=== PATIENT | male | born 1990 | race Caucasian/White ===

== ENCOUNTER 2020-04-09 15:54 | Emergency (ER) | payer MEDICAID, SELFPAY ==
[2020-04-09 16:15] VITALS: BP 118/77; PULSE 89; RESP 20; TEMP 36.7; O2SAT 100; BMI 32.3
--- NOTE | 2020-04-09 16:20 | HMH.EDUTC ---
[facility] [place] Disposition Clinical Impression: Encounter for laboratory testing for COVID-19 virus Disposition: Home, Self-Care Condition on Discharge: Good Instructions: Preventing the Spread of Coronavirus Discharge Instructions Additional Instructions: You was tested for today for COVID19 your test result should be back later this evening, you may call back later this evening to see if your test results are back and the result You was given a handout with instructions for Self Quarantine and Self isolation for while you wait on test results and what to do if they are positive Return if needed Straight to ER if any life threatening symptoms Referrals: PCP,No [Primary Care Provider] - Forms: Work/School Release Time of Disposition: 16:32 Medical Decision Making - Rainer Inquiry Pt receiving controlled substance: No Rainer was queried for this patient: No Vital Signs: 04/09/20 16:15 Temperature 98.0 F Temperature Source Oral Pulse Rate [Right Brachial] 89 Respiratory Rate 20 Blood Pressure [Right Arm] 118/77 Blood Pressure Mean [Right Arm] 90 Blood Pressure Source [Right Arm] Automatic Cuff Blood Pressure Position [Right Arm] Sitting 02 Sat by Pulse Oximetry 100 Oxygen Delivery Method Room Air Orders (Tests/Meds): ORDERS Category Date Time Status Covid-19 Nasal PCR ([facility]) Routine Lab 04/09/20 15:59 Ordered [facility] [place] HPI - General Stated complaint: Needs COVID Test Time Seen by Provider: 04/09/20 16:20 Mode of Arrival: Ambulatory Source of Information: Patient Limitations: No Limitations Description of Symptoms (Recalled from Triage Doc. by RN): PATIENT REQUESTING COVID TEST. HIS FIANCE TESTED POSITIVE TODAY AFTER BEING EXPOSED TO POSITIVE CO-WORKER. PATIENT DENIES SYMPTOMS HEENT Symptoms (Recalled from RN notes): No Resp Symptoms (Recalled from RN notes): No Skin Symptoms (Recalled from RN notes): No MS Symptoms (Recalled from RN notes): No Functional Status (Recalled from RN notes): WNL - History of Present Illness Provider Complaint: Patient states that he is not having any symptoms but his fiance tested positive earlier today for COVID and they live in the same house together States that he was worried that he may have it too and wanted to get tested - Related Data Home Medications Medication Instructions Recorded Confirmed No Known Home Medications 04/07/19 04/07/19 Allergies Allergy/AdvReac Type Severity Reaction Status Date / Time No Known Allergies Allergy Verified 04/07/19 10:50 - Worker's Comp Is this a Worker's Comp case?: No [facility] History - Hepatitis A Screen Drug use history?: No High risk sexual behaviors?: No History of sexually transmitted infection?: No Currently employed?: No Childcare worker?: No Do you have indoor plumbing?: Yes Do you have electricity?: Yes Attestation statement:: This patient has been screened for Hepatitis A risk factors. I have reviewed the patient's past medical history: Yes - Social History Alcohol Intake: never Occupational Status: other ROS Obtained: Yes All systems reviewed & no additional complaints, Yes Systems reviewed as appropriate & no additional complaints - Constitutional Constitutional: Reports system reviewed and no additional complaints, except as docu, Denies body ache, Denies chills, Denies fever(s) - ENT Ears, Nose, Mouth, and Throat: Reports system reviewed and no additional complaints, except as docu, Denies sinus pain, Denies sinus pressure, Denies sore throat - Respiratory Respiratory: Yes system reviewed and no additional complaints, except as docu - Gastrointestinal Gastrointestingal: Reports: system reviewed and no additional complaints, except as docu - Musculoskeletal Musculoskeletal: Reports system reviewed and no additional complaints, except as docu Physical Exam - General General appearance: alert, in no apparent distress - ENT ENT exam: Present: normal exam, normal oropharynx, muco
[2020-04-09 16:33] VITALS: BP 118/77; PULSE 89; RESP 20; TEMP 36.7; O2SAT 100
== END 2020-04-09 16:35 | disposition home or self-care (01) ==
PROVIDERS: Emergency Provider Nurse Practitioner
DX: Z20.828 Contact with and (suspected) exposure to other viral communicable diseases (principal)
CPT/HCPCS: 99201; U0003

== ENCOUNTER 2020-07-15 09:06 | Emergency (ER) | payer BC, OTHER, SELFPAY ==
[2020-07-15 09:13] VITALS: PULSE 78; RESP 16; TEMP 36.6; O2SAT 98; BMI 28.1
[2020-07-15 09:15] VITALS: BP 126/68; PULSE 84; RESP 19; TEMP 36.6; O2SAT 97; BMI 36.8
--- NOTE | 2020-07-15 09:21 | XR_ITS ---
PROCEDURE: XR RIBS RT MIN 3V W CXR1V CLINICAL INDICATION: right rib pain COMPARISON: No exams were available for comparison FINDINGS: Multiple views of the right ribs show no obvious fracture. No lytic or blastic change. Consider follow-up in 7-[address] with 3D reformats if pain persists Frontal view of the chest shows no acute finding IMPRESSION: No acute findings. Dictated by: Bernardino Oviedo MD 07/15/2020 09:50 Bernardino Oviedo MD in [place] 07/15/2020 09:50
--- NOTE | 2020-07-15 09:21 | HMH.EDUTC ---
[facility] [place] Disposition Clinical Impression: Rib pain on right side Disposition: Home, Self-Care Condition on Discharge: Good Instructions: Etodolac Additional Instructions: Over the counter muscle rubs may help with muscular pain in ribs *Over the counter patches like lidocaine patches may help with rib pain Take medication as prescribed, no additional Motrin or Ibuprofen with etodolac, you may take some Tylenol if you need something more for pain *Remember you had a Toradol shot in the clinic today, which is similar to Etodolac do not start this medication until 10pm tonight *Not additional anti-inflammatory like motrin, aleve, advil with the above amount of Etodolac. You can still take Tylenol every 4 hours as needed if you need something else for pain *Ice 20 minutes every 2 hours for the first 48 hours after the initial injury followed by moist heat every 20 minutes 3-4 times a day to affected area *Muscle relaxer as prescribed as needed for muscle spasms but remember, it WILL cause drowsiness You cannot take it and drive, operate machinery or care for small children. *Keep this area active, no movement leads to more stiffness, However take it easy and avoid heavy lifting pushing or pulling *Follow up with you family doctor if no improvement for further treatment Straight to ER if any life threatening symptoms Prescriptions: Etodolac [Etodolac 200mg Cap*] 200 mg PO Q6H PRN #20 cap PRN Reason: Moderate Pain Transmission Status: Received by [facility] methocarbamoL [Methocarbamol 750mg Tab] 750 mg PO BID PRN #10 tab PRN Reason: Muscle Spasm Transmission Status: Received by [facility] Referrals: PCP,No [Primary Care Provider] - As needed Forms: Work/School Release Time of Disposition: 10:01 Medical Decision Making - Rainer Inquiry Pt receiving controlled substance: No Rainer was queried for this patient: No Vital Signs: 07/15/20 09:13 07/15/20 09:15 07/15/20 10:28 Temperature 98 F 97.8 F 97.8 F Temperature Source Oral Oral Pulse Rate 84 Pulse Rate [Right] 78 84 Respiratory Rate 16 19 19 Blood Pressure 126/68 Blood Pressure [Right Arm] 126/68 Blood Pressure Mean [Right Arm] 87 Blood Pressure Source [Right Arm] Automatic Cuff Blood Pressure Position [Right Arm] Sitting 02 Sat by Pulse Oximetry 98 97 Oxygen Delivery Method Room Air Room Air Orders (Tests/Meds): ED MEDICATIONS Discontinued Medications Generic Name Dose Route Start Last Admin Trade Name Randal PRN Reason Stop Dose Admin Ketorolac Tromethamine 60 mg 07/15/20 09:53 07/15/20 10:05 Ketorolac 60mg/2ml Vial IM 07/15/20 09:54 60 mg ONCE ONE Administration - Radiology Data #1 Image(s): Chest (with right ribs) Image Reviewed: Yes I have reviewed radiologist's interpretation No acute findings Medical Decision Narrative: Patient reports pain in right rib area that is on side an extends around to his back, State that pain feels like he has a catch at times in right rib area Discussed with patient about transfer back to the ED for further work up for Gallbladder and patient declined at this time Patient states that pain much improved after Torodol injection [facility] [place] HPI - General Stated complaint: pain in right side Time Seen by Provider: 07/15/20 09:21 Mode of Arrival: Ambulatory Source of Information: Patient Limitations: No Limitations Description of Symptoms (Recalled from Triage Doc. by RN): Pt c/o right side upper rib pain. Advises he woke up this morning wiht pain in his rib area. Denies any N/V/D. 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 - History of Present Illness Provider Complaint: Patient state that he has been doing some work around his house and has been pulling and tugging at stuff. States that last night he started having pain in his right rib area that feels like it is catching State that at times it will take his breath and
[2020-07-15 10:28] VITALS: BP 126/68; PULSE 84; RESP 19; TEMP 36.6; O2SAT 97
== END 2020-07-15 10:29 | disposition home or self-care (01) ==
PROVIDERS: Emergency Provider Nurse Practitioner
DX: R07.81 Pleurodynia (principal); X50.0XXA Overexertion from strenuous movement or load, initial encounter; Y92.019 Unspecified place in single-family (private) house as the place of occurrence of the external cause
CPT/HCPCS: 71101; 96372; 99202; G0463

== ENCOUNTER → 2020-08-14 15:29 | Outpatient (CLI) | payer BC, OTHER, SELFPAY ==
[2020-08-14 16:21] LABS: Basophils # 0.1 K/mm3 (0-0.2); Basophils % 0.5 % (0.1-2.0); Eosinophils # 0.2 K/mm3 (0.0-0.4); Eosinophils % 2.4 % (0.1-12.0); Hematocrit 45.7 % (42.0-52.0); Lymphocytes # 2.7 K/mm3 (0.7-4.5); Lymphocytes % 28.6 % (10-50); Mean Corpuscular HGB Conc 32.8 g/dL (31.8-35.4); Mean Corpuscular Hemoglobin 28.9 pg (27.0-31.2); Mean Platelet Volume 7.5 fl (7.4-10.4); Monocytes # 0.5 K/mm3 (0.1-1.0); Monocytes % 5.7 % (1.7-9.3); Neutrophils # 5.9 K/mm3 (1.8-7.8); Neutrophils % 62.7 % (37.0-80.0); Platelet Count 302 K/mm3 (142-424); Red Blood Count 5.19 M/mm3 (4.60-6.20); Red Cell Distribution Width 13.1 % (11.5-17.5); White Blood Count 9.4 K/mm3 (4.8-10.8)
[2020-08-14 16:27] LABS: Hemoglobin A1C 5.8 % (4.0-6.0)
[2020-08-14 17:24] LABS: Chloride 103 mmol/L (98-107); Sodium 138 mmol/L (136-145)
[2020-08-14 17:25] LABS: Potassium 4.6 mmoL/L (3.5-5.1)
[2020-08-14 17:27] LABS: Alanine Aminotransferase 64 U/L (12-78); Albumin Level 4.4 g/dl (3.5-5.0); Albumin/Globulin Ratio 1.2 (1.1-1.8); Alkaline Phosphatase 97 U/L (38-126); Anion Gap 11.6 mEq/L (5-15); Aspartate Amino Transferase 43 U/L (17-59); Bilirubin,Total 0.9 mg/dl (0.2-1.3); Blood Urea Nitrogen 13 mg/dl (9-20); Calcium 10.4 mg/dl (8.4-10.2); Carbon Dioxide 28 mmol/L (22.0-30.0); Cholesterol 233 mg/dl (140-200); Estimated Glomerular Filt Rate 100 ml/min (>60); GFR (African American) 121 ML/MIN (>60); Globulin 3.7 g/dL (1.3-3.2); Glucose 89 mg/dl (74-100); Total Protein,Serum 8.1 g/dl (6.3-8.2); Triglycerides 334 mg/dl (30-150); VLDL Cholesterol 67 mg/dL (0-40)
[2020-08-14 17:28] LABS: Chol/HDL Ratio 5.8 (1-3.5); HDL Cholesterol 40 mg/dl (40-60)
[2020-08-14 17:39] LABS: Direct LDL Cholesterol 125.55 mg/dL (100-129)
== END ==
PROVIDERS: Visit Provider Internal Medicine Adolescent Medicine
DX: Z00.00 Encounter for general adult medical examination without abnormal findings (principal); G47.30 Sleep apnea, unspecified
CPT/HCPCS: 36415; 80053; 80061; 83036; 85025

== ENCOUNTER → 2020-09-05 17:58 | Outpatient (CLI) | payer BC, OTHER, SELFPAY | PROVIDERS: PCP Internal Medicine Adolescent Medicine; Visit Provider Internal Medicine Adolescent Medicine | DX: G47.33 Obstructive sleep apnea (adult) (pediatric) (principal); R06.81 Apnea, not elsewhere classified; R40.0 Somnolence; R06.83 Snoring | CPT/HCPCS: G0399 ==

== ENCOUNTER 2021-07-30 19:17 | Emergency (ER) | payer SELFPAY ==
[2021-07-30 21:44] VITALS: BP 159/96; PULSE 73; RESP 18; TEMP 36.8; O2SAT 97; BMI 34.0
--- NOTE | 2021-07-30 21:57 | HMH.EDUTC ---
[facility] [place] Disposition Clinical Impression: Viral syndrome, Exposure to COVID-19 virus Disposition: Home, Self-Care Condition on Discharge: Good Instructions: DI for COVID-19 (Suspected or Confirmed ), Preventing the Spread of Coronavirus Discharge Instructions Additional Instructions: Drink plenty of fluids. Take tylenol or ibuprofen for pain or fever. Take the medications as directed. Follow up with your regular doctor. GO TO THE ER FOR ANY WORSENING SYMPTOMS Quarantine until you know the results of your covid-19 test. Notify your school or workplace of your results and follow their instructions regarding return to work/school. Prescriptions: Brompheniramine/Pseudoephed/Dm [Bromfed Dm Cough Syrup] 5 ml PO Q6HP PRN #240 ml PRN Reason: Cough Transmission Status: Received by [email or web address] Ibuprofen [Ibuprofen 600mg Tablet] 600 mg PO Q6HP PRN #30 tab PRN Reason: Mild Pain Transmission Status: Received by [email or web address] Benzonatate [Benzonatate 100mg cap] 100 mg PO TIDP PRN #30 cap PRN Reason: Cough Transmission Status: Received by [email or web address] Referrals: Bobby Nolan MD [Primary Care Provider] - Forms: Work/School Release Time of Disposition: 22:06 Medical Decision Making - Medical Records Medical records reviewed: No: I reviewed the patient's medical records. - Rainer Inquiry Pt receiving controlled substance: No Vital Signs: 07/30/21 21:44 07/30/21 22:25 Temperature 98.3 F 98.3 F Temperature Source Oral Pulse Rate 73 Pulse Rate [Left] 73 Respiratory Rate 18 18 Blood Pressure 159/96 H Blood Pressure [Right Arm] 159/96 H Blood Pressure Mean [Right Arm] 117 02 Sat by Pulse Oximetry 97 - Lab Data Lab results reviewed: Yes: I reviewed the patient's lab results. Lab Results 07/30/21 21:35: Group A Strep Rapid Negative 07/30/21 21:43: Influenza Type A Ag Negative, Influenza Type B Ag Negative Orders (Tests/Meds): ORDERS Category Date Time Status Strep Screen Confirmation Stat Micro 07/30/21 21:35 Received [facility] [place] HPI - General Stated complaint: exposed ZUNIGA,Body aches Time Seen by Provider: 07/30/21 21:57 Mode of Arrival: Ambulatory Source of Information: Patient Limitations: No Limitations Description of Symptoms (Recalled from Triage Doc. by RN): pt c/o myalgia, ZUNIGA and nausea. pt was exposed directly to covid. HEENT Symptoms (Recalled from RN notes): Yes (ZUNIGA) Resp Symptoms (Recalled from RN notes): No Skin Symptoms (Recalled from RN notes): No MS Symptoms (Recalled from RN notes): No Functional Status (Recalled from RN notes): wnl - History of Present Illness Provider Complaint: He c/o feeling bad since this morning. He has had a scratchy sore throat, body aches, chills, and a low grade fever. He has been exposed to covid-19 and he has not been vaccinated against covid-19. - Related Data Previous Rx's Medication Instructions Recorded Etodolac [Etodolac 200mg Cap*] 200 mg PO Q6H PRN #20 cap 07/15/20 methocarbamoL [Methocarbamol 750mg 750 mg PO BID PRN #10 tab 07/15/20 Tab] Benzonatate [Benzonatate 100mg 100 mg PO TIDP PRN #30 cap 07/30/21 cap] Brompheniramine/Pseudoephed/Dm 5 ml PO Q6HP PRN #240 ml 07/30/21 [Bromfed Dm Cough Syrup] Ibuprofen [Ibuprofen 600mg 600 mg PO Q6HP PRN #30 tab 07/30/21 Tablet] Allergies Allergy/AdvReac Type Severity Reaction Status Date / Time No Known Allergies Allergy Verified 04/07/19 10:50 - Worker's Comp Is this a Worker's Comp case?: No [facility] History - Hepatitis A Screen Drug use history?: No High risk sexual behaviors?: No History of sexually transmitted infection?: No Currently employed?: No Childcare worker?: No Do you have indoor plumbing?: Yes Do you have electricity?: Yes Attestation statement:: This patient has been screened for Hepatitis A risk factors. I have reviewed the patient's past medical history: Yes - Social History Alcohol
[2021-07-30 21:58] LABS: Strep Scrn Group A (Rapid) Negative (Negative)
[2021-07-30 22:25] VITALS: BP 159/96; PULSE 73; RESP 18; TEMP 36.8
[2021-07-31 19:14] LABS: UTC Influenza A Antigen Negative (Negative); UTC Influenza B Antigen Negative (Negative)
== END 2021-07-30 22:27 | disposition home or self-care (01) ==
PROVIDERS: Emergency Provider Nurse Practitioner Family; PCP Internal Medicine Adolescent Medicine
DX: Z20.822 Contact with and (suspected) exposure to COVID-19 (principal); B34.9 Viral infection, unspecified; R50.9 Fever, unspecified
CPT/HCPCS: 87430; 87804; 99203; C9803; G0463; U0003; U0005

== ENCOUNTER → 2021-08-10 10:26 | Outpatient (CLI) | payer BC, SELFPAY | PROVIDERS: Visit Provider Nurse Practitioner | DX: U07.1 COVID-19 (principal) | CPT/HCPCS: C9803; U0003; U0005 ==

== ENCOUNTER → 2023-04-21 13:17 | Outpatient (CLI) | payer BC, SELFPAY ==
[2023-04-21 13:45] LABS: Basophils # 0.1 K/mm3 (0-0.2); Basophils % 0.4 % (0.1-2.0); Eosinophils # 0.2 K/mm3 (0.0-0.4); Hematocrit 45.9 % (42.0-52.0); Hemoglobin 15.9 g/dL (14.1-18.0); Lymphocytes # 3.2 K/mm3 (0.7-4.5); Lymphocytes % 31.5 % (10-50); Mean Corpuscular HGB Conc 34.7 g/dL (31.8-35.4); Mean Corpuscular Hemoglobin 30.4 pg (27.0-31.2); Mean Corpuscular Volume 87.8 fl (80-94); Mean Platelet Volume 8.2 fl (7.4-10.4); Monocytes # 0.5 K/mm3 (0.1-1.0); Monocytes % 5.2 % (1.7-9.3); Neutrophils # 6.3 K/mm3 (1.8-7.8); Neutrophils % 60.8 % (37.0-80.0); Platelet Count 316 K/mm3 (142-424); Red Blood Count 5.23 M/mm3 (4.60-6.20); Red Cell Distribution Width 13.3 % (11.5-17.5); White Blood Count 10.3 K/mm3 (4.8-10.8)
[2023-04-21 14:45] LABS: Anion Gap 15.6 mEq/L (5-15); Blood Urea Nitrogen 14 mg/dl (9-20); Calcium 10.3 mg/dl (8.4-10.2); Carbon Dioxide 28 mmol/L (22.0-30.0); Chloride 100 mmol/L (98-107); Estimated Glomerular Filt Rate 98 ml/min (>60); GFR (African American) 119 ML/MIN (>60); Glucose 83 mg/dl (74-100); Potassium 4.6 mmoL/L (3.5-5.1); Sodium 139 mmol/L (136-145)
== END ==
PROVIDERS: PCP Internal Medicine Adolescent Medicine; Visit Provider Surgery
DX: Z30.2 Encounter for sterilization (principal)
CPT/HCPCS: 36415; 80048; 85025

== ENCOUNTER 2023-05-06 06:02 | Day surgery (SDC) | payer BC, SELFPAY ==
[2023-05-04 14:21] VITALS: BMI 36.0
[2023-05-06] VITALS (10 sets, daily range): BP systolic 110–136; BP diastolic 53–88; PULSE 69–88; RESP 14–19; TEMP 36.1–36.6; O2SAT 90–97
--- NOTE | 2023-05-06 07:05 | EXP.ANES.CKL ---
[facility] Disclaimer: The information contained in this section may have been updated after the patient was seen, as this information can be updated by other users. Surgical History History of eye surgery Family History Other No significant family history Social History (Updated 05/06/23 @ 06:29 by Heike Aguilera RN) Smoking Status: Never smoker alcohol intake: never substance use type: denies use current occupational status: employed Travel in the last 8 weeks: None [facility] Anesthesia Checklist Patient Identification Patient Identification: Arm Band, Family and Verbal (Name & ) Structural Data Admitted From: Home Planned Operative Procedure/s: Vasectomy Verified Documents: Surgical Consent and History and Physical NPO Status Verified Time NPO: 21:00 Chart Verification Results Verified: CBC and BMP Additional verifications Patient : No Anesthesia Reactions: No Hx Blood Transfusions: No Blood Transfusion Reaction: No Cephalosporin Allergy: No Previous Colonoscopy: No Cardiovascular Assessment Heart Sounds: S1 & S2 Pulse Rhythm: Irregular Peripheral Edema: No Airway Assessment Mallampati Score:: Class III C-Spine Mobility Assessed: Yes TMJ Mobility Assessed: Yes Dentition: Good Dentition (Nothing loose per pt.) Neurological Assessment Level of Consciousness: Awake, Alert, Appropriate and Follows Commands Hx Seizures: No Numbness or tingling in extremities: No Anesthesia Plan Anesthesia Risk discussed: Yes Anesthesia Plan: Verified ASA Class: II Anesthesia Type: General
--- NOTE | 2023-05-06 08:09 | P.OP_ITS ---
Date of procedure: 05/06/23 Pre-op Diagnosis:: Desire for sterility Post-op Diagnosis:: Same Procedure performed:: Bilateral vasectomy Surgeon:: Bishnu Tarango MD Anesthesia: LMA Estimated blood loss (mL): 5 Operative findings:: Mild to moderate increased tissue thickening on left Operative note:: After informed consent was obtained the patient was taken to the operating room and placed in the supine position. General anesthesia with laryngeal mask airway was achieved. His florencia-scrotal region was prepped and draped in a sterile fashion. The left vas deferens was carefully elevated. Some mild to moderate tissue thickening noted. After infiltration with local anesthetic an incision was made overlying the left vas deferens. The underlying tissue was dissected with a combination of sharp dissection, blunt dissection, and electroc autery. The vas deferens was carefully elevated and then ligated with 2-0 chromic proximally and distally. The intervening portion was transected sharply and passed off for pathologic evaluation. Each margin was cauterized. The overlying skin was closed with 4-0 chromic. The right vas deferens was managed in the same fashion. Dressings were applied and the patient was transferred to recovery. Condition: stable Disposition: PACU Specimens:: Left vas deferens Right vas deferens Complications:: No immediate
--- NOTE | 2023-05-06 08:18 | EXP.ANES.I ---
[facility] Anesthesia Record Part I Anesthesia Record I Intake, IV Amount: 500 Hydration: Adequate Estimated blood loss (mL): 5 Urine output (mL): 0 Blood Products used (#): none Blood Pressure: 114/53 SaO2: 90 Pulse Rate: 82 Airway Patency: Patent Respiratory Rate: 16 Temperature: 97.0 F Patient is:: Awake, Drowsy and Stable Stable to PACU at:: 08:17
--- NOTE | 2023-05-06 12:58 | P.PNANES_ITS ---
[facility] Anesthesia Record Part II Anesthesia Record Part II Discharge Time: 08:42 Destination: Surgical Day Care (OP Surgery) PACU nurse assessment reviewed?: Yes Patient Condition:: Good Anesthesia Complications:: None Swallowing reflex intact?: Yes Airway Patency: Patent Cyanosis?: No Blood Pressure: 110/71 SaO2: 97 Respiratory Rate: 17 Pulse Rate: 82 Temperature: 97.1 F Mental Status: Alert & Oriented Pain level:: 0 Nausea and/or vomitting:: None Intake, IV Amount: 0 Hydration: Adequate
== END 2023-05-06 09:13 | disposition home or self-care (01) ==
PROVIDERS: PCP Internal Medicine Adolescent Medicine; Visit Provider Surgery
PROC: (CPT 55250; principal; 2023-05-06 07:30)
DX: Z30.2 Encounter for sterilization (principal)
CPT/HCPCS: 55250; 96374; J2405

== ENCOUNTER → 2023-06-25 16:14 | Outpatient (CLI) | payer BC, SELFPAY ==
[2023-06-25 17:03] LABS: PH,Semen 8.5 (7.3-8.3); Semen Viscosity Normal (Normal); Volume,Semen < 1.0 ml (2.0-5.0); WBCs,Semen Negative
[2023-06-25 17:19] LABS: Sperm Count 0 mil/mm3 (20-160)
== END ==
PROVIDERS: PCP Internal Medicine Adolescent Medicine; Visit Provider Surgery
DX: Z30.09 Encounter for other general counseling and advice on contraception (principal)
CPT/HCPCS: 89320

== ENCOUNTER 2024-03-23 02:51 | Emergency (ER) | payer SELFPAY ==
[2024-03-23 02:52] VITALS: BP 153/84; PULSE 136; RESP 22; TEMP 36.8; O2SAT 91; BMI 21.2
--- NOTE | 2024-03-23 02:53 | XR_ITS ---
PROCEDURE INFORMATION: Exam: XR Chest Exam date and time: 03/23/2024 3:11 AM Age: 33 years old Clinical indication: Pain; Chest pressure; Additional info: Cp, hard vomiting TECHNIQUE: Imaging protocol: Radiologic exam of the chest. Views: 1 view. COMPARISON: CR XR RIBS RT MIN 3V W CXR1V 07/15/2020 9:34 AM FINDINGS: Lungs: Unremarkable. No consolidation. Pleural spaces: Unremarkable. No pleural effusion. No pneumothorax. Heart/Mediastinum: Unremarkable. No cardiomegaly. Bones/joints: Unremarkable. IMPRESSION: No acute findings.
--- NOTE | 2024-03-23 02:57 | ECG_ITS ---
APPROVED REPORT Exam: Resting ECG HR:117 bpm ECG Measurements Heart Rate 117 AXES SD 156 P 47 QRSd 114 QRS -5 QT 312 T 30 QTc 382 Conclusion SINUS TACHYCARDIA MODERATE INTRAVENTRICULAR CONDUCTION DELAY [110+ ms QRS DURATION] ABNORMAL RHYTHM ECG No STEMI Electronically signed by : ABDI ZHENG, 03/23/2024 06:56:30
--- NOTE | 2024-03-23 02:58 | ED_ITS ---
Discharge Plan Disposition Patient Disposition: Home, Self-Care Condition: Good Prescriptions Prescriptions: No Action No Known Home Medications Activity Restrictions/Add. Instructions Additional Instructions/Restrictions: You were evaluated in the ER and are appropriate for discharge at this time. Avoid illicit substances in the future, especially products such as the delta 9 you took tonrema. These products are not regulated and you cannot guarantee what you are actually getting in them. Drink plenty of water and follow-up with your primary care doctor in 2 to 3 days for reevaluation. Return to the ER with new, worsening, or otherwise concerning symptoms. Clinical Impressions Clinical Impression: Alcohol use, Vomiting, Elevated lactic acid level, Ingestion of substance Instructions Patient Instructions: DI for Diarrhea and Traveler's Diarrhea -- Adult, DI for Diarrhea and Traveler's Diarrhea -- Child, DI for Nausea -- Adult, DI for Nausea -- Child, DI for Altered Mental Status Print Language Print Language: Polish Discharge ED Provider: Martina Calles General Adult HPI General Chief complaint: Altered Mental Status Stated complaint: n/v from delta 9 ingestion Time Seen by Provider: 03/23/24 02:53 History of Present Illness HPI narrative: 33-year-old male presents to the ER with multiple uncontrollable episodes of emesis. [employer] party called EMS for 2 individuals including this patient having uncontrollable vomiting. Law enforcement and EMS arrived on scene and help provide report. The individuals who are vomiting had taken delta 9 Gummies called Mapplas that are marketed as having 200 mg of D9 live resin plus HHC plus THC . Ingredients list include sugar, corn syrup, water, pectin, citric acid, fruit flavors, sodium citrate, potassium sorbate, MCT Oil, soy lethicin, hemp extract oil. This was taken directly from the bottle provided to me by law enforcement. Recommendation on the bottle is half gummy for the first time, up to 1 gummy at a time after initial use. Patient reports using this product approximately 1 year ago without any side effects. Tonight patient had a few beers prior to taking this product and since that time started having large- volume uncontrollable emesis. Nonbloody, nonbilious. Patient does not take any daily medications, no known drug allergies. EMS reports tachycardia and route, blood sugar 141. Patient is complaining of a burning sensation through his chest since starting to vomit. ROS otherwise negative. Related Data Home Medications ?Medication ?Instructions ?Recorded ?Confirmed No Known Home Medications 05/04/23 05/12/23 Allergies Allergy/AdvReac Type Severity Reaction Status Date / Time No Known Allergies Allergy Verified 05/12/23 14:00 [facility] Disclaimer: The information contained in this section may have been updated after the patient was seen, as this information can be updated by other users. Surgical History (Updated 05/12/23 @ 14:01 by ZOILA Medrano) History of vasectomy History of eye surgery Family History (Reviewed 05/12/23 @ 14: by ZOILA Medrano) Other No significant family history Social History Smoking Status: Never smoker alcohol intake: never substance use type: denies use current occupational status: employed Travel in the last 8 weeks: None ROS Obtained: Yes All systems reviewed & no additional complaints except as documented Positive ROS per HPI Physical Exam General General appearance: alert and anxious Comment: Diaphoretic Head Head exam: atraumatic and normocephalic Eye Eye exam: Present PERRL and EOMI ENT ENT exam: Present mucous membranes moist Neck Neck exam: Present normal inspection and full ROM; Absent tenderness (No crepitus) Chest Chest inspection: Present symmetric chest wall rise; Absent tenderness (No crepitus) Respiratory Respiratory exam: Present normal lung sounds bilaterally; Absent respiratory distress, wheezes or stridor Cardiovascular Cardiovascular exam: Present normal rhythm, tachycardia and other (2+ pulses throughout) Abdominal Exam Abdominal exam: Present soft; Absent distention, tenderness, guarding or rebound Extremities Exam Extremities exam: Present full ROM; Absent edema or joint swelling Neurological Exam Neurological exam: Present alert, oriented X3, CN II-XII intact, normal gait and other (Patient slightly waxes/wanes and at 1 point started acting like a car making engine noises, but when asked what he was doing, stated pretending to be a car. He is behaving slightly erratically but is oriented and able to be redirected.); Absent motor sensory deficit Psychiatric Psychiatric exam: Present agitated and anxious; Absent homicidal ideation or suicidal ideation Skin Skin exam: Present warm and dry Medical Decision Making Medical Records Medical records reviewed: Yes I reviewed the patient's medical records. MR Comment: Patient had vasectomy in April 2023. Rainer Inquiry Pt receiving controlled substance: No Vital Signs: 03/23/24 02:52 03/23/24 04:00 Temperature 98.2 F Temperature Source Axillary Pulse Rate 98 H Pulse Rate [Right] 136 H Respiratory Rate 22 15 Blood Pressure 104/64 L Blood Pressure [Right Arm] 153/84 H Blood Pressure Mean [Right Arm] 107 02 Sat by Pulse Oximetry 91 L 99 Oxygen Delivery Method Nasal Cannula Oxygen Flow Rate (LPM) 2 Lab Data Lab Results 03/23/24 03:00: WBC 14.5 H, RBC 4.93, Hgb 14.8, Hct 45.5, MCV 92.1, MCH 30.0, MCHC 32.5, RDW 13.6, Plt Count 398, MPV 8.7, Neut % (Auto) 49.7, Lymph % (Auto) 40.7, Graves % (Auto) 6.4, Eos % (Auto) 2.3, Baso % (Auto) 1.0, Neut # (Auto) 7.2, Lymph # (Auto) 5.9 H, Graves # (Auto) 0.9, Eos # (Auto) 0.3, Baso # (Auto) 0.1, Sodium 139, Potassium 3.4 L, Chloride 103, Carbon Dioxide 28, Anion Gap 11.4, BUN 18, Creatinine 1.00, Estimated Creat Clear 93, Estimated GFR 87, Est GFR ( Amer) 105, Glucose 169 H, Lactate 3.2 H, Calcium 9.2, Total Bilirubin 0.5, AST 34, ALT 60, Alkaline Phosphatase 76, Troponin I < 0.01, Total Protein 7.5, Albumin 4.2, Globulin 3.3 H, Albumin/Globulin Ratio 1.3 03/23/24 05:18: Lactate 2.1 03/23/24 03:00 03/23/24 03:00 Orders (Tests/Meds): ED MEDICATIONS Discontinued Medications Generic Name Dose Route Start Last Admin Trade Name Freq PRN Reason Stop Dose Admin Droperidol 2.5 mg 03/23/24 02:54 03/23/24 03:02 Droperidol 5mg/2ml Vial IV 03/23/24 02:55 2.5 mg ONCE ONE Administration Lactated Ringer's 2,000 mls @ 999 mls/hr 03/23/24 02:53 03/23/24 03:02 Lactated Ringer's 1000 Ml Bag IV 03/23/24 04:53 999 mls/hr .Q2H1M ONE Administration Potassium Chloride 20 meq 03/23/24 05:26 03/23/24 05:29 Potassium Chloride 20meq Tab PO 03/23/24 05:27 20 meq ONCE ONE Administration ORDERS Category Date Time Status CXR --portable [XR chest portable] Stat Exams 03/23/24 02:53 Taken CBC w/Auto Diff [Complete Blood Count Auto Diff] Stat Lab 03/23/24 03:00 Completed CMP [Comprehensive Metabolic Panel] Stat Lab 03/23/24 03:00 Completed Lactic Acid Stat Lab 03/23/24 03:00 Completed Lactic Acid Stat Lab 03/23/24 05:18 Completed Trop I [Troponin I] Stat Lab 03/23/24 03:00 Completed Troponin I Q3H Lab 03/23/24 06:00 Ordered Troponin I Q3H Lab 03/23/24 09:00 Ordered Medical Decision Narrative: In summary, this 33-year-old male presents to the emergency department today with multiple episodes of emesis in the setting of delta 9 and alcohol consumption. On initial evaluation patient is tachycardic but hemodynamically stable, GCS 15, no focal neurologic deficits, he is complaining of chest pain but has no reproducible chest pain, no tenderness, no crepitus, abdomen soft and nontender, patient is clearly intoxicated and occasionally acts like a car but states he is pretending to be a car and remains oriented.. Differential diagnosis includes but is not limited to intoxication, polysubstance use, unlikely to be cannabinoid hyperemesis however products like delta 9 are not tightly regulated and could still contain products causing this syndrome, also considered lactic acidosis, electrolyte abnormality, Dayna-Cotton, Boerhaave, ACS. I have lower suspicion for Dayna-Cotton and Boerhaave since patient has not had any bloody emesis. Based on these concerns, I ordered cardiac workup, chest x-ray, serum labs. ECG personally interpreted demonstrates sinus tachycardia, rate 117, normal axis, normal ID and QTc, no STEMI. Patient received IV fluids, droperidol for treatment. Labs personally reviewed demonstrate leukocytosis with WBC 14.5, no anemia, normal platelets, CMP with trace hypokalemia, elevated lactic at 3.2, patient is receiving LR and oral potassium repletion. Troponin undetectably low at less than 0.01. Reassuring. Lactic is significantly improved on repeat and patient is now tolerating oral intake. Chest x-ray personally interpreted does not demonstrate acute thoracic abnormality, no pneumomediastinum concerning for esophageal rupture. See radiology read for final interpretation. On reassessment patient continues to be stable, he has tolerated oral intake, vitals have improved, no additional emesis in the ER. He is clinically sober and appropriate for discharge. I counseled the patient on avoiding illicit substances in the future. Patient was given instructions on symptomatic management, follow up instructions, and return precautions for the emergency department. Patient indicated understanding and was discharged in stable condition. Critical Care Critical Care Time Critical Care Time: No
[2024-03-23] MEDS: LACTATED RINGERS 1000ML 2,000 ML 999 ML IV (03:02)
[2024-03-23] MEDS: droPERidol 5MG/2ML VIAL 2.5 MG IV (03:02)
[2024-03-23 03:05] LABS: Basophils # 0.1 K/mm3 (0-0.2); Eosinophils # 0.3 K/mm3 (0.0-0.4); Eosinophils % 2.3 % (0.1-12.0); Hematocrit 45.5 % (42.0-52.0); Hemoglobin 14.8 g/dL (14.1-18.0); Lymphocytes # 5.9 K/mm3 (0.7-4.5); Lymphocytes % 40.7 % (10-50); Mean Corpuscular HGB Conc 32.5 g/dL (31.8-35.4); Mean Corpuscular Volume 92.1 fl (80-94); Mean Platelet Volume 8.7 fl (7.4-10.4); Monocytes # 0.9 K/mm3 (0.1-1.0); Monocytes % 6.4 % (1.7-9.3); Neutrophils # 7.2 K/mm3 (1.8-7.8); Neutrophils % 49.7 % (37.0-80.0); Platelet Count 398 K/mm3 (142-424); Red Blood Count 4.93 M/mm3 (4.60-6.20); Red Cell Distribution Width 13.6 % (11.5-17.5); White Blood Count 14.5 K/mm3 (4.8-10.8)
[2024-03-23 03:12] LABS: Albumin Level 4.2 g/dl (3.5-5.0); Chloride 103 mmol/L (98-107); Potassium 3.4 mmoL/L (3.5-5.1); Sodium 139 mmol/L (136-145)
[2024-03-23 03:14] LABS: Blood Urea Nitrogen 18 mg/dl (9-20); Creatinine Clearance Estimated 93 mL/min (50-200); Estimated Glomerular Filt Rate 87 ml/min (>60); GFR (African American) 105 ML/MIN (>60)
[2024-03-23 03:15] LABS: Alanine Aminotransferase 60 U/L (12-78); Albumin/Globulin Ratio 1.3 (1.1-1.8); Alkaline Phosphatase 76 U/L (38-126); Anion Gap 11.4 mEq/L (5-15); Aspartate Amino Transferase 34 U/L (17-59); Bilirubin,Total 0.5 mg/dl (0.2-1.3); Calcium 9.2 mg/dl (8.4-10.2); Carbon Dioxide 28 mmol/L (22.0-30.0); Globulin 3.3 g/dL (1.3-3.2); Glucose 169 mg/dl (74-100); Total Protein,Serum 7.5 g/dl (6.3-8.2)
[2024-03-23 03:16] LABS: Lactic Acid 3.2 mmol/L (0.7-2.1)
[2024-03-23 03:30] LABS: Troponin I < 0.01 ng/ml (0.00-0.034)
[2024-03-23 04:00] VITALS: BP 104/64; PULSE 98; RESP 15; O2SAT 99
[2024-03-23] MEDS: POTASSIUM CHLORIDE 20MEQ TAB 20 MEQ PO (05:29)
[2024-03-23 05:31] LABS: Lactic Acid 2.1 mmol/L (0.7-2.1)
[2024-03-23 05:33] VITALS: BP 133/83; PULSE 109; RESP 14; TEMP 36.8; O2SAT 91
[2024-03-23 09:21] LABS: Reflex Lactic Add Lactic Reflex
== END 2024-03-23 05:45 | disposition home or self-care (01) ==
PROVIDERS: Emergency Provider Emergency Medicine
DX: R11.10 Vomiting, unspecified (principal); R74.02 Elevation of levels of lactic acid dehydrogenase [LDH]; F19.929 Other psychoactive substance use, unspecified with intoxication, unspecified; R00.0 Tachycardia, unspecified
CPT/HCPCS: 71045; 80053; 83605; 84484; 85025; 93005; 96361; 96374; 99284; J1790; J7120